=== PATIENT | male | born 1940 | race Caucasian/White ===

== ENCOUNTER 2018-04-09 09:27 | Outpatient (CLI) | payer MEDICARE, BC ==
--- NOTE | 2018-04-09 10:32 | RAD ---
LUMBAR SPINE 3 VIEWS: HISTORY: M[age], low back pain. COMPARISON: CT lumbar spine 2016. FINDINGS: There is a sacralized L5. 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 There is L3 over L4 ante rolisthesis of approximately 3 mm in the neutral position which does not worsen with flexion or decre ase with extension. No acute fracture or malalignment. IMPRESSION: Anterolisthesis at L3-4 without translation with flexion or extension. POS: [facility]
== END 2018-04-09 09:28 | disposition home or self-care (01) ==
LOC: TBSIIMAG 09:27
PROVIDERS: ATTEND Neurological Surgery
DX: M54.5 Low back pain (principal); M43.16 Spondylolisthesis, lumbar region
CPT/HCPCS: 72100

== ENCOUNTER 2019-05-19 07:48 | Outpatient (CLI) | payer MEDICARE, BC ==
--- NOTE | 2019-05-19 09:12 | RAD ---
EXAM: Lumbar spine 3 views including flexion and extension HISTORY: Spondylolisthesis lumbar region COMPARISON: 04/09/2018 FINDINGS: No evidence for acute fracture or dislocation involving the visualized spine. There are disc osteophytosis and facet arthrosis changes. Minimal stable retrolisthesis of L4 on a sacralized L5. Minimal grade 1 stable anterolisthesis of L3 on L4, no abnormal translation between flexion and exten tiny. No evidence for a bone lesion. IMPRESSION: Spondylosis. Stable listhesis changes.
--- NOTE | 2019-05-19 10:07 | MRI ---
MRI LUMBAR SPINE WITHOUT CONTRAST: INDICATIONS: Spondylolisthesis lumbar region. FINDINGS: There is diffuse marrow heterogeneity, which may be on the basis of a degenerative process. Intrinsi c T1 hyperintense foci may be reflective of focal areas of fat deposition/fatty marrow and a rounded T1 hyperintensity of L4 could relate to an intraosseous hemangioma. There is lumbarization of S1 wit h a rudimentary S1-S2 disk space. The conus medullaris terminates at the T12-L1 level. There is prominent marrow edema involving the i nferior one-half of the L1 and the superior one-half of the L2 vertebra with associated endplate oste ophytosis, disk degenerative narrowing, and marginal osteophytosis. No significant inflammatory T2 s ignal of the disk space or obvious destruction of the endplates. There is multilevel bilateral moderate facet hypertrophy. L5-S1: There is a broad-based left asymmetric disk protrusion spanning the subarticular through fora tito zone, with crowding of the traversing left S1 nerve root. Mild bilateral neural foraminal narr owing is present. There is mild narrowing of the central canal. L4-L5: Moderate central canal stenosis on the basis of disk osteophyte and facet hypertrophy. No hi gh grade foraminal stenosis. L3-L4: Mild to moderate central canal stenosis with mild bilateral neural foraminal narrowing. L2-L3: Mild narrowing of the central canal due to broad-based, right asymmetric disk osteophyte. Th ere is mild left and no significant right neural foraminal stenosis. L1-L2: Disk osteophyte with mild effacement of the ventral thecal sac. Mild narrowing of the neural foramina bilaterally. IMPRESSION: 1. Prominent marrow edema of the L1 and L2 vertebrae, favoring modic type I degenerative signal alte ration. Focal heterogeneity posteriorly about the endplates may be on the basis of subacute Schmorl' s node formation. These signal changes are favored to represent modic type I rather than diskitis/os teomyelitis, given absence of significant disk space inflammatory T2 signal or obvious endplate destr uction. Recommend clinical correlation and, if necessary, imaging followup in this regard, for pavan nued evaluation. 2. Multilevel degenerative change at the lumbar spine, as outlined above. 3. Diffuse marrow heterogeneity, likely senescent changes. POS: [facility]
== END 2019-05-19 07:49 | disposition home or self-care (01) ==
LOC: SCSMRI 07:48
PROVIDERS: ATTEND Specialist
DX: M43.12 Spondylolisthesis, cervical region (principal); M47.22 Other spondylosis with radiculopathy, cervical region; R60.0 Localized edema
CPT/HCPCS: 72100; 72148

== ENCOUNTER 2025-07-27 12:58 | Outpatient (CLI) | payer MEDICARE | END 2025-07-27 12:59 | disposition home or self-care (01) | LOC: RAD 12:58 | PROVIDERS: ATTEND Internal Medicine | DX: R06.00 Dyspnea, unspecified (principal); J18.9 Pneumonia, unspecified organism; I51.7 Cardiomegaly; J84.10 Pulmonary fibrosis, unspecified | CPT/HCPCS: 71046 ==